=== PATIENT | female | born 1985 | race Caucasian/White ===

== ENCOUNTER 2017-04-18 18:17 | Emergency (ER) | payer MEDICAID ==
[~2017-04-18] VITALS: Ht 175.3 cm; Wt 120.2 kg
[2017-06-12] MEDS ORDERED: PERCOCET 325-51 TAB PO (10:28)
[2017-06-12] MEDS ORDERED: VALIUM2 MG PO (10:29)
== END 2017-04-18 19:22 | disposition short-term general hospital (02) ==
LOC: ER 18:17
DX: L30.9 Dermatitis, unspecified (principal); F41.9 Anxiety disorder, unspecified; F32.9 Major depressive disorder, single episode, unspecified; Z88.6 Allergy status to analgesic agent
CPT/HCPCS: J0702; J3301